=== PATIENT | female | born 1970 | race Caucasian/White ===

== ENCOUNTER 2017-12-26 13:50 | Emergency (ER) | payer MEDICARE ==
--- NOTE | 2017-12-26 14:11 | EDM.PDOC ---
ED HPI GENERAL MEDICAL PROBLEM - General Stated Complaint: PT WOULD LIKE TO BE CHECK Time Seen by Provider: 12/26/17 13:55 Source of Information: Reports: Patient History Limitations: Reports: No Limitations - History of Present Illness INITIAL COMMENTS - FREE TEXT/NARRATIVE: History of present illness: []Patient went to the bathroom and felt a mass in her vagina and tried to pull on and realized that it was attached. She is currently on her period and denies . She complains of pain in her pelvis and low back. Patient arrived to [place] yesterday after driving from [facility]. Review of systems: As per history of present illness and below otherwise all systems reviewed and negative. Past medical history: As per history of present illness and as reviewed below otherwise noncontributory. Surgical history: As per history of present illness and as reviewed below otherwise noncontributory. Social history: No reported history of drug or alcohol abuse. Family history: As per history of present illness and as reviewed below otherwise noncontributory. Physical exam: General: Well developed, well nourished in NAD HEENT: Atraumatic, normocephalic, pupils reactive, negative for conjunctival pallor or scleral icterus, mucous membranes moist, throat clear, neck supple, nontender, trachea midline. Lungs: Clear to auscultation, breath sounds equal bilaterally, chest nontender. Heart: S1S2, regular, negative for clicks, rubs, or JVD. Abdomen: Soft, nondistended, nontender. Negative for masses or hepatosplenomegaly. Negative for costovertebral tenderness. Pelvis: Stable nontender. Genitourinary: 1 cm polyp visible at the introitus, Rectal: Deferred. Extremities: Atraumatic, negative for cords or calf pain. Neurovascular unremarkable. Neuro: Awake, alert, oriented. Cranial nerves II through XII unremarkable. Cerebellum unremarkable. Motor and sensory unremarkable throughout. Exam nonfocal. Diagnostics: []Ultrasound of the pelvis shows 6 x 4 cm posterior fibroid Therapeutics: []Declined pain meds in the ED Impression: []Uterine fibroid and cervical polyp Plan: []Tylenol, Aleve, ice or heat for comfort follow-up with [facility] at [facility] at [phone] Definitive disposition and diagnosis as appropriate pending reevaluation and review of above. vagina Pain Score (Numeric/FACES): 5 - Related Data Allergies Allergy/AdvReac Type Severity Reaction Status Date / Time nitrofurantoin Allergy Arrhythmias Verified 12/26/17 14:05 Sulfa (Sulfonamide Allergy Hives Verified 12/26/17 14:05 Antibiotics) Home Meds: Home Meds LORazepam 0.25 mg PO DAILY PRN 12/26/17 [History] ED ROS GENERAL - Review of Systems Review Of Systems: See Below (See history of present illness) ED EXAM, RENAL/ - Physical Exam Exam: See Below (See history of present illness) Course - Vital Signs Last Recorded V/S: Last Vital Signs Temp 97.5 F 12/26/17 14:06 Pulse 80 12/26/17 14:06 Resp 18 12/26/17 14:06 BP 158/101 H 12/26/17 14:06 Pulse Ox 99 12/26/17 14:06 Departure - Departure Time of Disposition: 16:01 Disposition: Home, Self-Care 01 Condition: Good Clinical Impression: Uterine fibroid Qualifiers: Uterine leiomyoma location: subserous Qualified Code(s): D25.2 - Subserosal leiomyoma of uterus - Discharge Information Referrals: PCP,None [Primary Care Provider] - Additional Instructions: The following information is given to patients seen in the emergency department who are being discharged to home. This information is to outline your options for follow-up care. We provide all patients seen in our emergency department with a follow-up referral. The need for follow-up, as well as the timing and circumstances, are variable depending upon the specifics of your emergency department visit. If you don't have a primary care physician on staff, we will provide you with a referral. We always advise you to contact your personal physician following an emergency department visit to inform them of the circumstance of the visit and for follow-up with them and/or the need for any referrals to a consulting specialist. The emergency department will also refer you to a specialist when appropriate. This referral assures that you have the opportunity for follow-up care with a specialist. All of these measure are taken in an effort to provide you with optimal care, which includes your follow-up. Under all circumstances we always encourage you to contact your private physician who remains a resource for coordinating your care. When calling for follow-up care, please make the office aware that this follow-up is from your recent emergency room visit. If for any reason you are refused follow-up, please contact the [facility] at and asked to speak to the emergency department charge nurse. Follow-up [facility], Tylenol, Motrin, Aleve ice or heat for comfort and if symptoms worsen
--- NOTE | 2017-12-26 15:44 | US ---
EXAMINATION: Transvaginal and transabdominal pelvic ultrasound HISTORY: Polyp COMPARISON: None TECHNIQUE: Grayscale and color Doppler imaging obtained of the pelvis transvaginally and transabdomin ally. FINDINGS: The lung the posterior fundus to the lower segment of the uterus is a subserosal heterogene ous fibroid measuring approximately 6.1 x 4.7 cm. The endometrial stripe measures 7 mm and otherwise appears normal. The left and right ovaries are normal in size, contour, and echogenicity demonstrating normal color D oppler flow. No adnexal masses or significant free pelvic fluid. IMPRESSION: 1. There is a 6.1 x 4.7 cm posterior uterine fibroid otherwise unremarkable pelvic ultrasound.
== END 2017-12-26 16:20 | disposition home or self-care (01) ==
LOC: MW.ED 13:50
DX: D25.2 Subserosal leiomyoma of uterus (principal); N84.1 Polyp of cervix uteri; Z79.899 Other long term (current) drug therapy; Z88.2 Allergy status to sulfonamides; Z88.8 Allergy status to other drugs, medicaments and biological substances
CPT/HCPCS: 76857; 76857-26; 99283; 99284-25